=== PATIENT | male | born 1980 | race African-American/Black ===

== ENCOUNTER → 2020-12-15 | Outpatient (CLI) | payer MEDICARE, BC | END | disposition home or self-care (01) | LOC: MRI 07:27 | PROVIDERS: ATTEND Neurological Surgery | DX: M50.221 Other cervical disc displacement at C4-C5 level (principal); M48.02 Spinal stenosis, cervical region; M51.35 Other intervertebral disc degeneration, thoracolumbar region; M47.814 Spondylosis without myelopathy or radiculopathy, thoracic region; M51.36 Other intervertebral disc degeneration, lumbar region; M48.061 Spinal stenosis, lumbar region without neurogenic claudication | CPT/HCPCS: 72141; 72146; 72148 ==

== ENCOUNTER → 2020-12-21 | Outpatient (CLI) | payer MEDICARE, BC ==
[~2020-12-21] MED LIST: GADOTERATE MEGLUMINE 5 MMOL/10 ML VIAL IV ONE
== END | disposition home or self-care (01) ==
LOC: MRI 10:24
PROVIDERS: ATTEND Neurological Surgery
DX: I67.82 Cerebral ischemia (principal)
CPT/HCPCS: 70553; A9577